=== PATIENT | female | born 1940 | race Caucasian/White ===

== ENCOUNTER 2018-05-15 10:34 | Emergency (ER) | payer MEDICARE, OTHER ==
[2018-05-15] MEDS: DEXAMETHASONE 10 MG/ML 1 ML INJ IM (11:34)
== END 2018-05-15 13:25 | disposition home or self-care (01) ==
LOC: FTE 13:25
DX: L29.9 Pruritus, unspecified (principal); F17.210 Nicotine dependence, cigarettes, uncomplicated; I10 Essential (primary) hypertension; Z79.82 Long term (current) use of aspirin
CPT/HCPCS: 96372; 99284-25

== ENCOUNTER 2018-12-06 11:50 | Emergency (ER) | payer MEDICARE, OTHER ==
[2018-12-06] MEDS: AZITHROMYCIN 500 MG TAB PO (12:33)
[2018-12-06] MEDS: BENZONATATE 100 MG CAP PO (12:56)
== END 2018-12-06 13:15 | disposition home or self-care (01) ==
LOC: E/R 11:50
DX: J40 Bronchitis, not specified as acute or chronic (principal); I10 Essential (primary) hypertension; Z79.82 Long term (current) use of aspirin; Z87.891 Personal history of nicotine dependence
CPT/HCPCS: 71045; 87400; 99285-25